=== PATIENT | female | born 2000 | race African-American/Black ===

== ENCOUNTER 2023-06-28 09:41 | Emergency (ER) | payer SELFPAY ==
--- NOTE | ~2023-06-28 | CT_ITS ---
EXAMINATION: CT cervical spine wo con DATE: 06/28/2023 11:29 INDICATION: Neck injury. Neck pain. TECHNIQUE: Computed tomography (CT) of the cervical spine was performed without intravenous contrast. Automated exposure control and iterative reconstruction technique were employed. The dose-length pro duct was 217.45 mGy-cm. COMPARISON: None FINDINGS: There is 7 degrees dextrocurvature of cervical spine. There is kyphosis of cervical spine. Vertebral body heights are normal. There is mildly decreased disc height at C4-C5. The following disc levels are specifically discussed: C2-C3: There is no uncovertebral joint osteoarthritis. There is mild bilateral facet joint osteoarthr itis. There is no neural foraminal stenosis. There is no central canal stenosis. C3-C4: There is mild left uncovertebral joint osteoarthritis. There is no facet joint osteoarthritis. There is no neural foraminal stenosis. There is no central canal stenosis. C4-C5: There is mild bilateral uncovertebral joint osteoarthritis. There is no facet joint osteoarthr itis. There is no neural foraminal stenosis. There is mild central canal stenosis. C5-C6: There is no uncovertebral joint osteoarthritis. There is no facet joint osteoarthritis. There is no neural foraminal stenosis. There is no central canal stenosis. C6-C7: There is no uncovertebral joint osteoarthritis. There is no facet joint osteoarthritis. There is no neural foraminal stenosis. There is no central canal stenosis. C7-T1: There is no uncovertebral joint osteoarthritis. There is mild bilateral facet joint osteoarthr itis. There is no neural foraminal stenosis. There is no central canal stenosis. IMPRESSION: 1. No fracture. 2. Mild cervical spondylosis. Reviewed, dictated and finalized at location A.
[2023-06-28 09:45] VITALS: BP 108/63; PULSE 78; RESP 16; TEMP 36.4; O2SAT 100
--- NOTE | 2023-06-28 10:25 | ECG_ITS ---
SEE SCANNED COPY FOR CONFIRMED REPORT. MTDD
[2023-06-28 10:27] VITALS: PULSE 78; O2SAT 100
[2023-06-28 10:44] VITALS: BP 112/70; BP 114/80; PULSE 75; PULSE 77
[2023-06-28 10:45] VITALS: BP 110/74; PULSE 90
[2023-06-28 10:47] LABS: Basophils Percent Auto 0.3 % (0.2-1.2); Eosinophils Percent Auto 0.8 % (0-4.4); Hematocrit 42.2 % (37.0-47.0); Hemoglobin 14.1 g/dL (12.0-15.0); Immature Granulocyte Absolute 0.02 K/mm3 (0.00-0.031); Immature Granulocyte Percent A 0.5 % (0-0.5); Lymphocytes Absolute Auto 1.12 K/mm3 (0.9-3.2); Lymphocytes Percent Auto 29.6 % (18.3-44.2); Mean Corpuscular HGB Conc 33.4 g/dl (32-36); Mean Corpuscular Hemoglobin 31.4 pg (26-34); Mean Platelet Volume 11.6 fl (7.4-10.4); Monocytes Absolute Auto 0.3 K/mm3 (0.1-0.6); Monocytes Percent Auto 8.2 % (2.6-8.5); Neutrophils Absolute Auto 2.3 K/mm3 (1.3-6.7); Neutrophils Percent Auto 60.6 % (45.5-73.1); Platelet Count Result 189 k/mm3 (150-375); Red Blood Count 4.49 M/mm3 (4.2-5.4); Red Cell Distribution Width 12.1 % (11.5-14.5); White Blood Count 3.8 K/mm3 (4.5-10.0)
[2023-06-28] MEDS: SODIUM CHLORIDE 0.9% IV 1,000 ML 999 ML IV CONT (10:52)
[2023-06-28] MEDS: KETOROLAC 30 MG/ML VIAL (*BKC) IV PUSH (10:53)
[2023-06-28 10:57] LABS: Alanine Aminotransferase 21 U/L (6-35); Albumin Level 4.8 g/dL (3.5-5.1); Alkaline Phosphatase 62 U/L (38-126); Anion Gap 8 mmol/L (4-12); Aspartate Amino Transferase 25 U/L (14-36); Bilirubin,Total 1.6 mg/dL (0.2-1.3); Blood Urea Nitrogen 11 mg/dL (7-17); Calcium 9.4 mg/dL (8.4-10.2); Carbon Dioxide 25 mmol/L (22-30); Chloride 108 mmol/L (98-107); Estimated CRCL calculation 78 ml/min; Estimated Glomerular Filt Rate > 60; Glucose 87 mg/dL (65-110); Potassium 4.1 mmol/L (3.4-5.0); Sodium 141 mmol/L (137-145)
[2023-06-28 11:06] LABS: Appearance Urine Clear (Clear); Bacteria Urine None Seen /hpf; Bilirubin Urine Negative (Negative); Blood Urine Negative (Negative); Color Urine Yellow (Yellow); Glucose Urine UA Negative (Negative); Ketones Urine Negative (Negative); Leukocyte Esterase Ur Trace LEU/UL (Negative); Nitrate Urine Negative (Negative); Non Pathogenic Casts 0-2; Protein Urine Negative (Negative); RBC Urine 0-2 /hpf (0-2); Specific Grav Ur 1.015 (1.001-1.035); Squamous Epithelial Cell Urine Few /hpf (Few)
[2023-06-28 11:25] LABS: Add Urine Microscopic? YES
[2023-06-28] MEDS: TETANUS,DIPHTHERIA,AC PERTUSSIS ADULT (0.5 ML) BOOSTRIX IM (12:18)
--- NOTE | 2023-06-28 12:20 | ED.GENADULT ---
HPI - General Adult General Chief complaint: Syncope Stated complaint: syncope Time Seen by Provider: 06/28/23 10:18 History of Present Illness HPI narrative: Patient is a 23-year-old female who presents ER after having a syncopal episode. 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 She struck her chin on the ground. She has laceration. EMS arrived in her blood sugar was in the 40s. She reports poor appetite over last couple days. No history of diabetes. No insulin use. She has no headache. She has mild achiness to her neck. No arm numbness or weakness. Related Data Allergies Allergy/AdvReac Type Severity Reaction Status Date / Time No Known Allergies Allergy Verified 06/28/23 10:29 Review of Systems Constitutional: Constitutional: Reports no additional constitutional complaints ENT: Reports system reviewed and no additional complaints, except as documented Cardiovascular: Cardiovascular: Reports no additional cardiovascular complaints Respiratory: Respiratory: Reports no additional respiratory complaints Musculoskeletal: Musculoskeletal: Reports no additional musculoskeletal complaints Neurologic: Reports syncope, Denies headache(s), Denies focal weakness and Denies numbness PMFSH Past Medical History Medical History (Updated 06/28/23 @ 16:44 by Berry Farris MD) Healthy female adult Surgical History Surgical History (Updated 06/28/23 @ 16:44 by Berry Farris MD) No history of previous surgery Exam Narrative: GENERAL: Well-appearing, well-nourished, and in no acute distress. HEAD: Normocephalic, atraumatic. ENT: Mucous membranes moist. NECK: Supple. no midline tenderness of the cervical spine. C-spine immobilized. CHEST: Clear to auscultation. No respiratory distress. HEART: Regular rate and rhythm. Normal peripheral pulses. EXTREMITIES: Normal range of motion. No edema. SKIN: Warm, dry, no rash. 3 cm laceration to the chin. NEURO: Alert and oriented x3. PSYCH: Normal mood and affect. Course Course Emergency Course: Wound repaired. Tetanus updated. C-spine negative. Labs unremarkable. Urinalysis with white blood cells but no bacteria no urinary symptoms. Vital Signs Vital signs: Vital Signs Temperature 97.6 F 06/28/23 09:45 Pulse Rate 78 06/28/23 09:45 Respiratory Rate 16 06/28/23 09:45 Blood Pressure 108/63 06/28/23 09:45 Pulse Oximetry 100 06/28/23 09:45 Oxygen Delivery Room Air 06/28/23 09:45 Temperature 97.6 F 06/28/23 09:45 Pulse Rate 88 06/28/23 12:22 Respiratory Rate 18 06/28/23 12:22 Blood Pressure 120/87 06/28/23 12:22 Pulse Oximetry 100 06/28/23 12:22 Oxygen Delivery Room Air 06/28/23 10:27 Procedures Laceration Laceration 1: Date: 06/28/23 Time: 12:10 Site: other (chin) Size (cm): 2.5 Description: linear Depth: simple, single layer Local Anesthetic: lidocaine 1% and with epi Amount of anesthesia used (mL): 3 Pre-repair: wound explored and irrigated extensively ====== Skin Level ====== Skin layer closed with: nylon Size (cm): 5-0 Number of sutures: 6 Technique: simple, interrupted ====== Subcutaneous Layer ====== Subcutaneous layer closed with: vicryl Size: 5-0 Number of sutures: 2 ====== Muscle Layer ====== ====== Tendon Layer ====== Medical Decision Making Vital Signs Vital Signs: Vital Signs Temperature 97.6 F 06/28/23 09:45 Pulse Rate 78 06/28/23 09:45 Respiratory Rate 16 06/28/23 09:45 Blood Pressure 108/63 06/28/23 09:45 Pulse Oximetry 100 06/28/23 09:45 Oxygen Delivery Room Air 06/28/23 09:45 Temperature 97.6 F 06/28/23 09:45 Pulse Rate 88 06/28/23 12:22 Respiratory Rate 18 06/28/23 12:22 Blood Pressure 120/87 06/28/23 12:22 Pulse Oximetry 100 06/28/23 12:22
[2023-06-28 12:22] VITALS: BP 120/87; PULSE 88; RESP 18; O2SAT 100
== END 2023-06-28 12:32 | disposition home or self-care (01) ==
PROVIDERS: Emergency Provider Emergency Medicine
DX: R55 Syncope and collapse (principal); S01.81XA Laceration without foreign body of other part of head, initial encounter; M47.812 Spondylosis without myelopathy or radiculopathy, cervical region; W18.30XA Fall on same level, unspecified, initial encounter; Z23 Encounter for immunization
CPT/HCPCS: 12051; 36415; 72125; 80053; 81001; 81025; 85025; 87077; 87086; 87088; 87186; 90471; 90715; 93005; 96361; 96374; 99284; J1885; J7030

== ENCOUNTER 2023-07-04 15:19 | Emergency (ER) | payer OTHER, SELFPAY ==
[2023-07-04 15:27] VITALS: BP 130/75; PULSE 73; RESP 16; TEMP 36.5; O2SAT 100
--- NOTE | 2023-07-04 16:28 | ED.WOUNDLAC ---
HPI - Wound/Laceration General Chief Complaint: Wound/Laceration Stated Complaint: Stiches Removal Time Seen by Provider: 07/04/23 15:39 Source: patient and old records reviewed Mode of arrival: ambulatory Limitations: no limitations History of Present Illness HPI narrative: Patient is a 23-year-old female who presents the ED for suture removal. Patient had a syncopal episode while at work on 06/27, sustaining a laceration to her chin. Was seen in the ED here, had 6 sutures placed. Presents today to have sutures removed. She denies any other concerns. No fevers. No further syncopal episodes. Related Data Allergies Allergy/AdvReac Type Severity Reaction Status Date / Time No Known Allergies Allergy Verified 06/28/23 10:29 Review of Systems Review of Systems: CONSTITUTIONAL: Denies fever, chills, or sweats. SKIN: See HPI NEUROLOGIC: Denies headache, dizziness, numbness, or weakness. All systems reviewed & are unremarkable except as noted in HPI and below PMFSH Past Medical History Medical History Healthy female adult Surgical History Surgical History No history of previous surgery Exam Narrative: GENERAL: Well appearing, well-nourished, non-toxic, in no acute distress. HEAD: Normocephalic, atraumatic. ENT: Healed laceration to chin, [address] Some dried crusting material over suture line. No drainage or bleeding. Sensation intact. RESPIRATORY: Airway patent, respirations nonlabored. CARDIOVASCULAR: Regular rate and rhythm MUSCULOSKELETAL: Moves all extremities. No gross deformities. SKIN: Warm, dry, normal color. NEURO: A&O X3. Speech clear. PSYCHIATRIC: Appropriate mood and affect. Normal interaction. Course Vital Signs Vital signs: Vital Signs Temperature 97.7 F 07/04/23 15:27 Pulse Rate 73 07/04/23 15:27 Respiratory Rate 16 07/04/23 15:27 Blood Pressure 130/75 07/04/23 15:27 Pulse Oximetry 100 07/04/23 15:27 Oxygen Delivery Room Air 07/04/23 15:27 Temperature 97.7 F 07/04/23 15:27 Pulse Rate 73 07/04/23 15:27 Respiratory Rate 16 07/04/23 15:27 Blood Pressure 130/75 07/04/23 15:27 Pulse Oximetry 100 07/04/23 15:27 Oxygen Delivery Room Air 07/04/23 15:27 MDM - Wound/Laceration MDM Narrative Medical decision making narrative: Sutures removed. Laceration was healed appropriately. No other concerns. Discharge home. Discharge Plan Discharge Clinical Impression: Encounter for removal of sutures Patient Disposition: Home, Self-Care Condition: Stable Instructions: Antibiotic Form, Laceration (ED) Additional Instructions: Continue to use antibiotic ointment as needed. You may also use vitamin-E oil to help with scarring. Follow-up/Referrals: UNKNOWN,DOCTOR [Primary Care Provider] - Time of Disposition: 16:28
== END 2023-07-04 16:30 | disposition home or self-care (01) ==
PROVIDERS: Emergency Provider Physician Assistant
DX: S01.81XD Laceration without foreign body of other part of head, subsequent encounter (principal); W18.39XD Other fall on same level, subsequent encounter
CPT/HCPCS: 15853; 99281